=== PATIENT | female | born 1990 | race Caucasian/White ===

== ENCOUNTER 2017-02-03 09:37 | Emergency (ER) | payer MEDICAID ==
[2017-02-03 09:49] VITALS: BP 123/82
--- NOTE | 2017-02-03 11:26 | EDM.PDOC ---
ED HPI ENT - General Chief Complaint: ENT Problem Stated Complaint: SWOLLEN GLANDS Time Seen by Provider: 02/03/17 09:55 Source of Information: Reports: Patient, Family (Mother), RN notes reviewed History Limitations: Reports: No limitations - History of Present Illness INITIAL COMMENTS - FREE TEXT/NARRATIVE: The patient states that she developed bilateral submandibular swelling this past , 02/01/2017. She reports some discomfort. No recent fever. She denies upper respiratory infection symptoms, such as rhinorrhea or sinus pressure. She has an occasional cough. No prior similar symptoms. She states that she took some Benadryl and [place], which did not help. The patient does not have a PCP. Past Medical History - Past Health History Medical/Surgical History: Denies Medical/Surgical History Social & Family History - Tobacco Use Smoking Status *Q: Current Every Day Smoker Years of Tobacco use: 10 Packs/Tins Daily: 0.3 - Caffeine Use Caffeine Use: Reports: None - Alcohol Use Alcohol Use History: Yes Alcohol Use Frequency: Socially - Recreational Drug Use Recreational Drug Use: No - Living Situation & Occupation Living situation: Reports: single, with family Occupation: unemployed ED ROS ENT - Review of Systems Review Of Systems: See Below Constitutional: Reports: malaise HEENT: Reports: No symptoms Respiratory: Reports: No Symptoms Cardiovascular: Reports: No symptoms Endocrine: Reports: no symptoms GI/Abdominal: Reports: No symptoms : Reports: no symptoms Musculoskeletal: Reports: no symptoms Skin: Reports: no symptoms Neurological: Reports: No Symptoms Psychiatric: Reports: No symptoms Hematologic/Lymphatic: Reports: no symptoms Immunologic: Reports: no symptoms ED EXAM, ENT - Physical Exam Exam: See Below Exam Limited By: No limitations General Appearance: alert, WD/WN, no apparent distress Eye Exam: bilateral eye: EOMI, normal inspection Ears: normal external exam, normal canal, hearing grossly normal, normal TMs Nose: normal inspection, normal mucousa, no blood Mouth/Throat: Normal inspection, Normal gums, Normal lips, Normal oropharynx, Normal teeth Head: atraumatic, normocephalic Neck: normal inspection, supple, full range of motion, lymphadenopathy (L) (mild ), lymphadenopathy (R) (mild), other (Mild tenderness to the submandibular lymph nodes.) Respiratory/Chest: no respiratory distress, lungs clear, normal breath sounds, no accessory muscle use Cardiovascular: normal peripheral pulses, regular rate, rhythm, no gallop, no JVD, no murmur, no rub GI/Abdominal: normal bowel sounds, soft, non tender, no organomegaly, no distention, no abnormal bruit, no mass Back: normal inspection Extremities: normal inspection, normal range of motion, no pedal edema, normal capillary refill Neurological: alert, oriented, normal cognition, no motor/sensory deficits Psychiatric: normal affect Skin: Warm, Dry, Intact, Normal color, No rash Course - Vital Signs Last Recorded V/S: Last Vital Signs Temp 36.7 C 02/03/17 09:46 Pulse 98 02/03/17 09:46 Resp 18 02/03/17 09:46 BP 123/82 02/03/17 09:46 Pulse Ox 98 02/03/17 09:46 - Orders/Labs/Meds Labs: Laboratory Tests 02/03/17 02/03/17 02/03/17 Range/Units 10:15 10:15 10:15 WBC 9.65 (3.98-10.04) K/mm3 RBC 4.54 (3.98-5.22) M/mm3 Hgb 13.3 (11.2-15.7) gm/L Hct 40.5 (34.1-44.9) % MCV 89.2 (79.4-94.8) fl MCH 29.3 (25.6-32.2) pg MCHC 32.8 (32.2-35.5) g/dl RDW Std Deviation 48.7 H (36.4-46.3) fL Plt Count 295 (182-369) K/mm3 MPV 9.7 (9.4-12.3) fl Neutrophils % (Manual) 68 H (40-60) % Band Neutrophils % 0 (0-10) % Lymphocytes % (Manual) 21 (20-40) % Atypical Lymphs % 3 % Monocytes % (Manual) 5 (2-10) % Eosinophils % (Manual) 2 (0.7-5.8) % Basophils % (Manual) 0 L (0.1-1.2) Myelocytes % 1 Platelet Estimate Adequate Plt Morphology Comment See note Polychromasia 1+ slight Hypochromasia 1+ slight Poikilocytosis 1+ slight Anisocytosis 1+ slight Macrocytosis 1+ slight Tear Drop Cells 1+ slight Ovalocytes 1+ slight RBC Morph Comment Abnormal C-Reactive Protein 1.8 H* (<1.0) mg/dL Monoscreen Negative (NEGATIVE) - Re-Assessments/Exams Free Text/Narrative Re-Assessment/Exam: 02/03/17 11:19 Test results discussed with the patient and her mother. The patient's mononucleosis screen and rapid strep test are negative. Her CBC is normal, without an elevated WBC count. Her CRP is mildly elevated at 1.8. This is consistent with a viral illness, most likely a viral URI. I am recommending that she take [id number] ibuprofen as needed for discomfort, but if she is not having any significant discomfort, she need not even do that. I explained that this will run its course, and that there is not really anything that she can do to shrink her lymph nodes. Departure - Departure Time of Disposition: 11:21 Disposition: Home, Self-Care 01 Condition: good Clinical Impression: Viral URI, Submandibular lymphadenopathy Instructions: Lymphadenopathy, Upper Respiratory Infection, Adult, [id number] Referrals: PCP,None [Primary Care Provider] - Lissy Huizar PA-C [Physician [employer] Operator] - Forms: ED Department Discharge Additional Instructions: You were seen in the emergency room for swelling of the lymph nodes under your jaw. Workup in the ER included blood work, a mononucleosis screen, and a rapid strep test. You do not have an elevated WBC count that would suggest a bacterial infection. Your mononucleosis screen and rapid strep test were negative. The CRP returned mildly elevated, consistent with a viral illness. You MOST LIKELY have a viral URI. This will have to run its course. You may take [id number] Tylenol or ibuprofen as needed for neck discomfort. Ibuprofen will probably work better and last longer, but may cause stomach upset. We DO NOT recommend you take any other [id number] cough or cold remedies. They do not work, but do have side effects. Followup with Lissy Huizar in the clinic, as needed. If any other problems, please do not hesitate to return to the ER.
== END 2017-02-03 11:34 | disposition home or self-care (01) ==
LOC: JD.ED 09:37
DX: J06.9 Acute upper respiratory infection, unspecified (principal); R59.0 Localized enlarged lymph nodes; F17.210 Nicotine dependence, cigarettes, uncomplicated
CPT/HCPCS: 36415; 85025; 86140; 86308; 87081; 87430; 99282; 99283